=== PATIENT | female | born 2000 | race Caucasian/White ===

== ENCOUNTER → 2024-04-16 07:20 | Outpatient (REF) | payer OTHER, SELFPAY | LOC: HWRAD 07:20 | PROVIDERS: ATTENDING PHYSICIAN Nurse Practitioner Family; FAMILY PHYSICIAN Family Medicine | DX: R10.10 Upper abdominal pain, unspecified (principal) | CPT/HCPCS: 76700 ==

== ENCOUNTER → 2024-04-25 16:56 | Outpatient (REF) | payer OTHER, SELFPAY | LOC: RAD 16:56 | PROVIDERS: ATTENDING PHYSICIAN Nurse Practitioner Family; FAMILY PHYSICIAN Family Medicine | DX: K86.2 Cyst of pancreas (principal) | CPT/HCPCS: 74170; Q9967 ==

== ENCOUNTER → 2024-05-24 18:18 | Outpatient (REF) | payer OTHER, SELFPAY | LOC: MRI 18:18 | PROVIDERS: ATTENDING PHYSICIAN Internal Medicine Gastroenterology; FAMILY PHYSICIAN Family Medicine | DX: R93.5 Abnormal findings on diagnostic imaging of other abdominal regions, including retroperitoneum (principal) | CPT/HCPCS: 74183; A9575 ==

== ENCOUNTER 2024-05-26 10:44 | Day surgery (SDC) | payer OTHER, SELFPAY ==
[2024-05-25 23:47] VITALS: BP 129/84
[2024-05-26] VITALS (19 sets, daily range): BP systolic 97–124; BP diastolic 43–95; BMI 27.0
[2024-05-26 00:04] LABS: % Basophils 0.5 % (0-2); % Eosinophils 0.8 % (0-6); % Immature Granulocytes 0.2 % (0-0.5); % Lymphocytes 25.1 % (20.5-51.1); % Monocytes 6.1 % (1.7-9.3); % Neutrophils 67.3 % (42.2-75.2); Absolute Basophils 0.1 10^3/uL (0-0.2); Absolute Eosinophils 0.1 10^3/uL (0-0.7); Absolute Lymphocytes 2.7 10^3/uL (1.2-3.4); Absolute Monocytes 0.7 10^3/uL (0.1-0.6); Absolute Neutrophils 7.2 10^3/uL (1.4-6.5); Hematocrit 39.8 % (37.0-47.0); Hemoglobin 13.6 g/dL (12.0-16.0); Mean Corp Hgb Conc. 34.2 g/dL (33.0-37.0); Mean Corpuscular Hgb 31.1 pg (27.0-31.0); Mean Corpuscular Volume 91.1 fL (81.0-99.0); Mean Platelet Volume 9.7 fL (7.4-10.4); Nucleated Red Blood Cells % 0 %; Platelet Count 244 10^3/uL (130-400); Red Blood Cell Count 4.37 10^6/uL (4.20-5.40); Red Cell Dist. Width 12.2 % (11.5-14.5); White Blood Cell Count 10.6 10^3/uL (4.8-10.8)
[2024-05-26 00:04] LABS: Urine Albumin Negative (Neg - Trace); Urine Bilirubin Negative (Negative); Urine Character Clear (Clear); Urine Color Straw; Urine Glucose Negative (Negative); Urine Ketone Negative (Negative); Urine Leukocyte Negative (Negative); Urine Nitrite Negative (Negative); Urine Occult Blood Negative (Negative); Urine Specific Gravity 1.005 (<1.030); Urine Urobilinogen Negative (Neg - 1+)
[2024-05-26 00:21] LABS: HCG, Serum Qualitative Screen Negative
[2024-05-26 00:25] LABS: ALT (SGPT) 17 U/L (0-35); AST (SGOT) 27 U/L (14-36); Albumin 4.6 g/dl (3.5-5.0); Alkaline Phosphatase < 20 U/L (38-126); Blood Urea Nitrogen 15 mg/dl (7-17); Calcium 9.4 mg/dl (8.4-10.2); Carbon Dioxide 27 mmol/L (22-30); Chloride 105 mmol/L (98-107); Glucose 112 mg/dl (70-99); Lipase 151 U/L (23-300); Potassium 4.1 mmol/L (3.5-5.1); Sodium 139 mmol/L (135-145); Total Bilirubin 0.7 mg/dl (0.2-1.3); Total Protein 7.5 g/dl (6.3-8.2); eGFR > 60.00
[2024-05-26] MEDS: MAALOX 40 PO (02:20)
[2024-05-26] MEDS: TORADOL 15 MG IV (02:30)
[2024-05-26] MEDS: NSS 500 IV (02:30)
[2024-05-26] MEDS: PROTONIX IV 40 MG IV (02:30)
--- NOTE | 2024-05-26 03:06 | ED.GENMED ---
History of Present Illness
<Keivn Kaur MD - Last Filed: 05/26/24 14:06>
General
Chief Complaint: Abdominal Pain
Source: patient
Exam Limitations: none
Time Seen by Provider: 05/26/24 02:00
Nursing documentation reviewed up to this point in time: agreed with
History of Present Illness
History of Present Illness:
Patient presents to ED secondary to upper abdominal pain associated with nausea and vomiting this evening. Patient has had ongoing intermittent symptoms for the past 1 month. Patient has been evaluated by her primary care physician as well as GI
physician. Patient has had multiple outpatient imaging studies, which had revealed gallstones. Patient was referred to surgery for evaluation, with whom she has an appointment in 1 month. Abdominal pain described as sharp, nonradiating, without
any alleviating or exacerbating factors. Patient also reports associated bloating sensation with loose bowel movements. Denies trauma. Denies back pain. Denies difficulty with urination. Denies loss of appetite. Denies loss of weight. Denies
fever or chills.
Past History
<Kevin Kaur MD - Last Filed: 05/26/24 14:06>
Past History
ED Past Medical History: Other (IBS)
ED Past Surgical History: None
Review of Systems
<Kevin Kaur MD - Last Filed: 05/26/24 14:06>
Review of Systems
Allergies reviewed?: Yes
All Other Systems: ROS reviewed and negative except as documented in HPI and ROS
Constitutional: Reports no symptoms
Respiratory: Reports no symptoms
Cardiac: Reports no symptoms
ABD/GI: Reports abdominal pain, nausea, vomiting and diarrhea
Musculoskeletal: Reports no symptoms
Skin: Reports no symptoms
Neurological: Reports no symptoms
Phy Exam
<Kevin Kaur MD - Last Filed: 05/26/24 14:06>
Physical Exam
Physical Exam:
Physical Exam
General: mild distress, not acutely ill. afebrile
Head: nc/at. eomi
Neck: supple. normal range of motion.
Heart: s1/s2 regular rate and rhythm, no murmur. equal radial pulses.
Lungs: no acute respiratory distress. clear bilaterally
Abdomen: normal bowel sounds. mild epigastric tenderness to palpation. no distention
Neuro: alert and oriented. no focal neurological deficits
Skin: no rash
Psychiatric: well kept. interactive and cooperative
Extremities: no edema. no calf tenderness.
Course
<Kevin Kaur MD - Last Filed: 05/26/24 14:06>
Orders/Labs/Results
Orders:
Orders
05/25/24 23:50
Test Result ONCE
05/25/24 23:56
Complete Blood Count/With Diff Urgent
Comprehensive Metabolic Panel Urgent
HCG, Serum Qualitative Screen Urgent
Lipase Urgent
05/25/24 23:58
Urinalysis Reflex To Culture Urgent
Date Specimen was Collected: 05/25/24
Time Specimen was Collected: 23:50
05/26/24
RF Fluoroscopy, C-arm Routine
RF Operative Cholangiogram Routine
Reason For Exam: GALLSTONES
05/26/24 02:11
Ketorolac [Toradol] 15 mg IV NOW STA
Mag Hydrox/Al Hydrox/Simeth [Maalox] 30 ml Phenobarb/Hyoscy/Atropine/Scop [] 10 ml PO NOW
Pantoprazole [Protonix IV] 40 mg IV NOW STA
05/26/24 02:12
0.9% Sodium Chloride 500 ml [Nss] 500 ml IV BOLUS
05/26/24 02:17
Mag Hydrox/Al Hydrox/Simeth [Maalox] 30 ml .ROUTE .STK-MED ONE
Phenobarb/Hyoscy/Atropine/Scop [] 10 ml .ROUTE .STK-MED ONE
05/26/24 07:36
Acetaminophen [Tylenol] 650 mg PO Q4HPRN PRN
HYDROmorphone [Dilaudid] 0.5 mg IV Q4HPRN PRN
Piperacillin/Tazo 3.375 Gram [Zosyn] 3.375 gram in 50 ml IV NOW
05/26/24 Lunch
Regular
05/26/24 10:55
Bupivacaine 0.25%Pf/Epinephrin [Sensorcaine-Epi 0.25%-0.0005] 30 ml .ROUTE .STK-MED ONE
Fentanyl Citrate/Pf [Sublimaze] 100 mcg .ROUTE .STK-MED ONE
Iohexol [Omnipaque] 50 ml .ROUTE .STK-MED ONE
05/26/24 11:00
Dexamethasone Sod Phosphate [Decadron] 20 mg .ROUTE .STK-MED ONE
Lidocaine HCl/Pf [Xylocaine-Mpf 1% Vial] 50 mg .ROUTE .STK-MED ONE
Midazolam HCl [Versed] 2 mg .ROUTE .STK-MED ONE
Ondansetron Injectable [Zofran] 4 mg .ROUTE .STK-MED ONE
Phenylephrine HCl/0.9% NaCl [Praveen-Synephrine] 1,000 mcg .ROUTE .STK-MED ONE
Propofol [Diprivan] 40 ml .ROUTE .STK-MED
Rocuronium [place] [Rocuronium] 50 mg .ROUTE .STK-MED ONE
05/26/24 11:31
Fentanyl Citrate/Pf [Sublimaze] 100 mcg .ROUTE .STK-MED ONE
Metoclopramide [Reglan] 10 mg .ROUTE .STK-MED ONE
05/26/24 11:36
Glycopyrrolate [Robinul] 0.2 mg .ROUTE .STK-MED ONE
Neostigmine [Prostigmin] 3 mg .ROUTE .STK-MED ONE
05/26/24 11:42
HYDROmorphone [Dilaudid] 1 mg .ROUTE .STK-MED ONE
05/26/24 11:45
Acetaminophen 1000MG/100Ml [Ofirmev] 1,000 mg in 100 ml .ROUTE .STK-MED
05/26/24 11:54
OR Pathology Routine
Pre-Operative Diagnosis: cholelithiasis
Operative Procedure: lap cholecystectomy
Surgeon: Dr. Clifton
Specimen Type: gallbladder
05/26/24 12:09
Fentanyl Citrate/Pf [Sublimaze] 100 mcg .ROUTE .STK-MED ONE
05/26/24 12:48
Discharge Patient As Directed
Discharge patient after: d/c once pacu criteria met
05/26/24 14:00
Normosol (Mult Electrolytes) [Normosol-R/Plasmalyte-A] 1,000 ml IV SDS-ONCE
Ondansetron Injectable [Zofran] 4 mg IV SDS-ONCEPRN PRN
Oxycodone [Roxicodone] 10 mg PO SDS-Q4HPRN PRN
Oxycodone [Roxicodone] 5 mg PO SDS-Q4HPRN PRN
05/26/24 16:00
Acetaminophen [Tylenol] 650 mg PO Q4HPRN PRN
Acetaminophen [Tylenol] 650 mg PO SDS-Q4HPRN PRN
Abnormal Lab Results
05/25/24
23:56
MCH 31.1 H pg
(27.0-31.0)
Absolute Neuts (auto) 7.2 H 10^3/uL
(1.4-6.5)
Absolute Monos (auto) 0.7 H 10^3/uL
(0.1-0.6)
Glucose 112 H mg/dl
(70-99)
Alkaline Phosphatase < 20 L U/L
(38-126)
05/25/24 23:56
05/25/24 23:56
Vital Signs
Initial and Last Documented VS:
Initial Vital Signs
Temp Pulse Resp BP Pulse Ox
98.7 F 107 16 129/84 99
05/25/24 23:47 05/25/24 23:47 05/25/24 23:47 05/25/24 23:47 05/25/24 23:47
Last Documented Vital Signs
Temp Pulse Resp BP Pulse Ox
98.3 F 70 18 124/73 100
05/26/24 13:35 05/26/24 13:35 05/26/24 13:35 05/26/24 13:35 05/26/24 13:35
<Daniela Doe, DO - Last Filed: 05/26/24 07:50>
Orders/Labs/Results
Orders:
Orders
05/25/24 23:50
Test Result ONCE
05/25/24 23:56
Complete Blood Count/With Diff Urgent
Comprehensive Metabolic Panel Urgent
HCG, Serum Qualitative Screen Urgent
Lipase Urgent
05/25/24 23:58
Urinalysis Reflex To Culture Urgent
Date Specimen was Collected: 05/25/24
Time Specimen was Collected: 23:50
05/26/24
RF Fluoroscopy, C-arm Routine
RF Operative Cholangiogram Routine
Reason For Exam: GALLSTONES
05/26/24 02:11
Ketorolac [Toradol] 15 mg IV NOW STA
Mag Hydrox/Al Hydrox/Simeth [Maalox] 30 ml Phenobarb/Hyoscy/Atropine/Scop [] 10 ml PO NOW
Pantoprazole [Protonix IV] 40 mg IV NOW STA
05/26/24 02:12
0.9% Sodium Chloride 500 ml [Nss] 500 ml IV BOLUS
05/26/24 02:17
Mag Hydrox/Al Hydrox/Simeth [Maalox] 30 ml .ROUTE .STK-MED ONE
Phenobarb/Hyoscy/Atropine/Scop [] 10 ml .ROUTE .STK-MED ONE
05/26/24 07:36
Acetaminophen [Tylenol] 650 mg PO Q4HPRN PRN
HYDROmorphone [Dilaudid] 0.5 mg IV Q4HPRN PRN
Piperacillin/Tazo 3.375 Gram [Zosyn] 3.375 gram in 50 ml IV NOW
05/26/24 Lunch
Regular
05/26/24 10:55
Bupivacaine 0.25%Pf/Epinephrin [Sensorcaine-Epi 0.25%-0.0005] 30 ml .ROUTE .STK-MED ONE
Fentanyl Citrate/Pf [Sublimaze] 100 mcg .ROUTE .STK-MED ONE
Iohexol [Omnipaque] 50 ml .ROUTE .STK-MED ONE
05/26/24 11:00
Dexamethasone Sod Phosphate [Decadron] 20 mg .ROUTE .STK-MED ONE
Lidocaine HCl/Pf [Xylocaine-Mpf 1% Vial] 50 mg .ROUTE .STK-MED ONE
Midazolam HCl [Versed] 2 mg .ROUTE .STK-MED ONE
Ondansetron Injectable [Zofran] 4 mg .ROUTE .STK-MED ONE
Phenylephrine HCl/0.9% NaCl [Praveen-Synephrine] 1,000 mcg .ROUTE .STK-MED ONE
Propofol [Diprivan] 40 ml .ROUTE .STK-MED
Rocuronium [place] [Rocuronium] 50 mg .ROUTE .STK-MED ONE
05/26/24 11:31
Fentanyl Citrate/Pf [Sublimaze] 100 mcg .ROUTE .STK-MED ONE
Metoclopramide [Reglan] 10 mg .ROUTE .STK-MED ONE
05/26/24 11:36
Glycopyrrolate [Robinul] 0.2 mg .ROUTE .STK-MED ONE
Neostigmine [Prostigmin] 3 mg .ROUTE .STK-MED ONE
05/26/24 11:42
HYDROmorphone [Dilaudid] 1 mg .ROUTE .STK-MED ONE
05/26/24 11:45
Acetaminophen 1000MG/100Ml [Ofirmev] 1,000 mg in 100 ml .ROUTE .STK-MED
05/26/24 11:54
OR Pathology Routine
Pre-Operative Diagnosis: cholelithiasis
Operative Procedure: lap cholecystectomy
Surgeon: Dr. Clifton
Specimen Type: gallbladder
05/26/24 12:09
Fentanyl Citrate/Pf [Sublimaze] 100 mcg .ROUTE .STK-MED ONE
05/26/24 12:48
Discharge Patient As Directed
Discharge patient after: d/c once pacu criteria met
05/26/24 14:00
Normosol (Mult Electrolytes) [Normosol-R/Plasmalyte-A] 1,000 ml IV SDS-ONCE
Ondansetron Injectable [Zofran] 4 mg IV SDS-ONCEPRN PRN
Oxycodone [Roxicodone] 10 mg PO SDS-Q4HPRN PRN
Oxycodone [Roxicodone] 5 mg PO SDS-Q4HPRN PRN
05/26/24 16:00
Acetaminophen [Tylenol] 650 mg PO Q4HPRN PRN
Acetaminophen [Tylenol] 650 mg PO SDS-Q4HPRN PRN
Abnormal Lab Results
05/25/24
23:56
MCH 31.1 H pg
(27.0-31.0)
Absolute Neuts (auto) 7.2 H 10^3/uL
(1.4-6.5)
Absolute Monos (auto) 0.7 H 10^3/uL
(0.1-0.6)
Glucose 112 H mg/dl
(70-99)
Alkaline Phosphatase < 20 L U/L
(38-126)
05/25/24 23:56
05/25/24 23:56
Vital Signs
Initial and Last Documented VS:
Initial Vital Signs
Temp Pulse Resp BP Pulse Ox
98.7 F 107 16 129/84 99
05/25/24 23:47 05/25/24 23:47 05/25/24 23:47 05/25/24 23:47 05/25/24 23:47
Last Documented Vital Signs
Temp Pulse Resp BP Pulse Ox
98.3 F 70 18 124/73 100
05/26/24 13:35 05/26/24 13:35 05/26/24 13:35 05/26/24 13:35 05/26/24 13:35
<Kevin Kaur MD - Last Filed: 05/26/24 14:06>
MDM/Problems Addressed
MDM/Problems Addressed:
Outpatient abdominal ultrasound, CT scanning, and abdominal MRI report reviewed. Pt given treatment in ED and will be reassessed. If symptoms persist, may benefit from surgery evaluation.
<Daniela Doe DO - Last Filed: 05/26/24 07:50>
*Critical Care Note
Total Time (30-74mins, 75-104mins- exclusive of procedures): Not Applicable
ED Attending Note
<Kevin Kaur MD - Last Filed: 05/26/24 14:06>
-
Portions of this chart may have been created with voice recognition software.� Occasional wrong word or��sound alike� substitutions may have occurred due to the inherent limitations of voice recognition software.
Discharge Plan
Departure
Patient Disposition: Admit
Date of Disposition: 05/26/24
Time of Disposition: 07:35
Admit to: OR
Admit to doctor: Elodia
Presentation/result/management discussed w/ accepting MD/: Elodia general surgery
Patient with high blood pressure during this ER visit?: No
Condition: Good
Discharge Problem:
Acute cholecystitis
Interventions
Interventions:
*Risk Screen - Suicide Last Done: 05/25/24 23:47
*General Assessment Last Done: 05/25/24 23:47
*Neglect/Abuse Screening Last Done: 05/25/24 23:47
ED- Fall Risk Assessment Last Done: 05/26/24 00:51
*ED COVID-19 Vaccine History Last Done: 05/25/24 23:47
*Nursing Disposition Last Done: 05/26/24 10:40
NU-Geoqmz-Aiyexrwjje Assessment Last Done: 05/26/24 00:50
Discharge Date and Time
Discharge Date/Time: 05/26/24 10:40
--- NOTE | 2024-05-26 07:38 | HPS.HSE ---
Family Physician
-
Family Physician: Thuan Nobles
Chief Complaint
-
Abdominal pain
History of Present Illness
Patient is a 24 yo F with no pertinent PMH who presents to the ED with epigastric and RUQ abdominal pain. Symptoms began yesterday evening lasting several hours. Currently she states that her discomfort is improved, but not completely resolved.
She has had recurrent episodes of discomfort over the past 4 to 6 weeks. Outpatient workup with her PCP. She has had a US, CT scan, and most recently an MRI all of which have demonstrated cholelithiasis without any evidence of cholecystitis.
There was question of a pancreatic head lesion on her initial ultrasound prompting the further imaging; on her recent MRI there is no evidence of a pancreatic head mass. Episodes of pain are associated with oral intake. She has been trying to
follow a low-fat diet. Associated nausea and vomiting. No fevers or chills. No jaundice, pale stools, or tea colored urine. She is currently on a PPI and stool softener, which have not improved her symptoms.
Medical History
Past Medical History
Past Medical History: Reports None
Past Surgical History: Reports None
Social History
Tobacco: Non-smoker
Alcohol: None
Drug: None
Personal: Single
Family History
Family History: Not pertinent
Allergies / Home Medications
Allergies reflects when Allergies were last updated in [employer].
Home Medications with original date entered in [employer]
Allergy/Medication List:
NKDA
Review of Systems
-
A 12 point ROS was completed and negative except as noted: Yes
Physical Exam
Vital Signs
Vital Signs
Temp Pulse Resp BP Pulse Ox
98.7 F 95 16 100/68 100
05/25/24 23:47 05/26/24 07:11 05/25/24 23:47 05/26/24 07:08 05/26/24 07:08
Physical Exam
General: Well Developed and Well Nourished
HEENT: NormoCephalic and Anicteric
Respiratory: Non Labored Respirations
Cardiac: Regular Rhythm
GI: Soft and Tender (mild epigastrium and RUQ)
Musculoskeletal: No Edema
Skin: Warm and Dry
Neuro: Nonfocal/grossly intact
Laboratory Results
-
05/25/24 23:56
05/25/24 23:56
Laboratory Results
Total Bilirubin 0.7 mg/dl (0.2-1.3) 05/25/24 23:56
AST 27 U/L (14-36) 05/25/24 23:56
ALT 17 U/L (0-35) 05/25/24 23:56
Alkaline Phosphatase < 20 U/L (38-126) L 05/25/24 23:56
Lipase 151 U/L (23-300) 05/25/24 23:56
Data Reviewed
-
CT Scan: Image Personally Visualized and interpreted and Report Reviewed by me
Ultrasound: Image Personally Visualized and interpreted
MRI: Image Personally Visualized and interpreted and Report Reviewed by me
Lab Data: Labs Reviewed by me
Impression/Plan
-
IMPRESSION:
Patient is a 24 yo F p/w crescendo biliary colic versus acute cholecystitis
The natural history and pathophysiology of biliary and stone disease was discussed. Anatomy was briefly reviewed. Prior workup including labs, US, CT scan, and MRI were reviewed. Recommend cholecystectomy given her persistent symptoms. Options
for management including continued medical management with a low-fat diet and outpatient cholecystectomy versus cholecystectomy during this admission were considered and discussed. The pros and cons of both approaches was discussed. Rosenda would
like to proceed with cholecystectomy at this admission.
Plan for a laparoscopic cholecystectomy with possible cholangiogram. The procedure itself, as well as the risks, benefits, and alternatives was discussed. Specifically, we discussed the risks of bleeding, infection, injury to surrounding
structures (bowel, bile ducts), CBD injury, need for open procedure. Typical postprocedural recovery including pain management and the 10 to 20% risks of fluctuations in GI function were discussed. All questions answered. Consent signed.
PLAN:
-- Laparoscopic cholecystectomy with possible cholangiogram
-- NPO, IVF
-- Antibiotics: Zosyn
-- Pain control: Tylenol and IV Dilaudid
--- NOTE | 2024-05-26 07:45 | W.SUR.PREOP ---
Pre-Operative Surgical Note
-
I have examined this patient prior to the performance of the scheduled procedure.
The patient's condition is unchanged from the time of the current History and
Physical and the patient is able to undergo the scheduled procedure.
[2024-05-26] MEDS: ZOSYN 50 IV (08:16)
--- NOTE | 2024-05-26 12:33 | W.IMMPOSTOP ---
Surgical Immed Post Op Note
-
Primary Surgeon: Elodia
Assisting Surgeon: None
Pre-op Diagnosis: Biliary colic
Post-op Diagnosis: Biliary colic
Procedure Performed: Laparoscopic cholecystectomy with IOC
Anesthesia Type: General
Specimen / Cultures:
1. Gallbladder
Estimated Blood Loss: 3 cc
Complications: None
Operative Findings:
1. No significant inflammation or adhesions, small stones impacted at cystic duct
2. Critical view of safety
3. IOC negative for filling defect, anatomy confirmed
4. Duct and artery taken with clips
== END 2024-05-26 13:35 | disposition home or self-care (01) ==
LOC: PACU 10:44
PROVIDERS: Emergency Medicine; ATTENDING PHYSICIAN Emergency Medicine; FAMILY PHYSICIAN Family Medicine
DX: K80.20 Calculus of gallbladder without cholecystitis without obstruction (principal)
CPT/HCPCS: 47563; 88304; 74300; 76000; 80053; 81003; 83690; 84703; 85025; 96374; 96375; 99284; A4300